=== PATIENT | female | born 1970 | race American Indian/Alaskan Native ===

== ENCOUNTER 2016-11-06 10:22 | Emergency (ER) | payer MEDICAID, OTHER ==
[2016-11-06 10:52] VITALS: RESP 18; TEMP 97.9
[2016-11-06 10:55] VITALS: O2SAT 98
[2016-11-06 11:43] VITALS: BP 148/79; PULSE 75
[2016-11-06 12:16] LABS: PH,URINE 6.5 (4.7-8.0); URINE APPEARANCE CLEAR (CLEAR); URINE BILIRUBIN NEGATIVE (NEGATIVE); URINE BLOOD NEGATIVE (NEGATIVE); URINE COLOR STRAW (YELLOW); URINE GLUCOSE (UA) NEGATIVE (NEGATIVE); URINE KETONE NEGATIVE (NEGATIVE); URINE LEUKOCYTE ESTERASE NEGATIVE Leu/uL (NEGATIVE); URINE PROTEIN TRACE mg/dL (<30 mg/dL); URINE UROBILINOGEN 0.2 E.U./dL (<1 E.U./dL)
[2016-11-06 12:28] LABS: URINE RBC NEGATIVE /hpf (0-2); URINE WBC NEGATIVE /hpf (0-6)
[2016-11-06 12:29] LABS: URINE BACTERIA RARE (NEG)
--- NOTE | 2016-11-06 12:29 | ED PDOC ---
Arrival/HPI - General Historian: Patient - General Chief Complaint: Female Genitourinary Time Seen by Provider: 11/06/16 10:56 - History of Present Illness Narrative History of Present Illness (Text): 11/06/16 12:26 46yo female who present with complaint of vaginal discharge and burning x 4days. Denies dysuria, abdominal pain, hematuria, fever, chills. States she is sexually active in a monogamous relationship. (Grabiel Lua) Past Medical History - Provider Review Nursing Documentation Reviewed: Yes - Infectious Disease Hx of Infectious Diseases: None - Cardiac Hx Hypertension: Yes - Musculoskeletal/Rheumatological Hx Falls: No - Gastrointestinal Other/Comment: Gastric sleeve - Psychiatric Hx Substance Use: No - Surgical History Hx Section: Yes Hx Hysterectomy: Yes Other/Comment: Gastric sleeve Family/Social History - Physician Review Nursing Documentation Reviewed: Yes Family/Social History: Unknown Family HX Smoking Status: Never Smoked Hx Alcohol Use: No Hx Substance Use: No Hx Substance Use Treatment: No Allergies/Home Meds Allergies/Adverse Reactions: Allergies No Known Allergies Allergy (Verified 11/06/16 10:51) Home Medications: Home Meds Medication Instructions Recorded Confirmed Nabumetone [Relafen] 500 mg PO DAILY PRN 12/08/11 12/08/11 Review of Systems - Physician Review All systems were reviewed & negative as marked: Yes - Review of Systems Constitutional: Normal Eyes: Normal ENT: Normal Respiratory: Normal Cardiovascular: Normal Gastrointestinal: Normal Genitourinary Female: Vaginal Discharge. absent: Dysuria, Frequency, Hematuria Musculoskeletal: Normal Skin: Normal Neurological: Normal Endocrine: Normal Hemo/Lymphatic: Normal Psychiatric: Normal Physical Exam Vital Signs Reviewed: Yes Temperature: Afebrile Blood Pressure: Normal Pulse: Regular Respiratory Rate: Normal Appearance: Positive for: Well-Appearing, Non-Toxic, Comfortable Pain Distress: None Mental Status: Positive for: Alert and Oriented X 3 - Systems Exam Head: Present: Atraumatic, Normocephalic Pupils: Present: PERRL Extroacular Muscles: Present: EOMI Conjunctiva: Present: Normal Mouth: Present: Moist Mucous Membranes Neck: Present: Normal Range of Motion Respiratory/Chest: Present: Clear to Auscultation, Good Air Exchange. No: Respiratory Distress, Accessory Muscle Use Cardiovascular: Present: Regular Rate and Rhythm, Normal S1, S2. No: Murmurs Abdomen: Present: Normal Bowel Sounds. No: Tenderness, Distention, Peritoneal Signs Genitourinary/Pelvic Exam: Present: Vaginal Discharge (Whitish/frothy odrous discharge noted inside the vault). No: Cervical Motion Tendernes Back: Present: Normal Inspection Upper Extremity: Present: Normal Inspection. No: Cyanosis, Edema Lower Extremity: Present: Normal Inspection. No: Edema Neurological: Present: GCS=15, CN II-XII Intact, Speech Normal Skin: Present: Warm, Dry, Normal Color. No: Rashes Psychiatric: Present: Alert, Oriented x 3, Normal Insight, Normal Concentration Vital Signs Temp Pulse Resp BP Pulse Ox 11/06/16 11:42 75 18 148/79 98 11/06/16 10:55 97.9 F 77 18 150/89 98 11/06/16 10:46 97.9 F 77 18 150/89 99 Medical Decision Making ED Course and Treatment: I was available for consultation during PA evaluation. The chart was reviewed by me, and I agree with disposition. The documented history was done by the physician energy conservation representative. The documented physical exam was done by the physician energy conservation representative. The documented procedures were done by the physician energy conservation representative. (Darrell Caballero) - Lab Interpretations Lab Results: Lab Results 11/06/16 12:00: Urine Color Straw, Urine Appearance Clear, Urine pH 6.5, Ur Specific [place] <= 1.005, Urine Protein Trace H, Urine Glucose (UA) Negative, Urine Ketones Negative, Urine Blood Negative, Urine Nitrate Negative, Urine Bilirubin Negative, Urine Urobilinogen 0.2, Ur Leukocyte Esterase Negative, Urine RBC Negative, Urine WBC Negative, Ur Epithelial Cells 3 - 4, Urine Bacteria Rare - Medication Orders Current Medication Orders: Discontinued Medications Metronidazole (Flagyl) 500 mg PO STAT STA PRN Reason: Protocol Stop: 11/06/16 12:26 Disposition/Present on Arrival - Present on Arrival Any Indicators Present on Arrival: No History of DVT/PE: No History of Uncontrolled Diabetes: No Urinary Catheter: No History of Decub. Ulcer: No History Surgical Site Infection Following: None - Disposition Have Diagnosis and Disposition been Completed?: Yes Disposition Time: 12:30 Patient Plan: Discharge - Disposition Diagnosis: Bacterial vaginosis Disposition: HOME/ ROUTINE Condition: STABLE Discharge Instructions (ExitCare): Bacterial Vaginosis (ED) Additional Instructions: Take medication as directed Follow up with your [employer]CHIT[employer] Return to ED for any new or worsening symptoms Prescriptions: metroNIDAZOLE [Flagyl] 500 mg PO BID #14 tab Referrals: Israel Mathew, [Primary Care Provider] - Follow up with primary
== END 2016-11-06 13:24 | disposition home or self-care (01) ==
LOC: ED 10:22
DX: N76.0 Acute vaginitis (principal)